=== PATIENT | female | born 1995 | race Caucasian/White ===

== ENCOUNTER 2017-09-19 17:31 | Emergency (ER) | payer OTHER ==
[~2017-09-19] VITALS: Ht 157.5 cm; Wt 54.4 kg
[~2017-09-19 17:31] MED LIST: ALPR1TAB2 PO; DOXY100C2 PO; METR500T PO; ONDA4TAB10 SL
[2017-09-19 18:30] VITALS: BP 118/58
--- NOTE | 2017-09-19 18:41 | PHYS DOC ---
Past Medical History Past Medical History: Hypothyroid Past Surgical History: Other Additional Past Surgical Histo: LEFT ARM ORTHO Alcohol Use: Occasionally Drug Use: None Adult General Chief Complaint Chief Complaint: Congestion HPI HPI Patient is a 22 year old female with history of hypothyroidism and Fuentes's disease who presents today with 2 complaints. Patient is complaining of a sinus infection for 2 weeks. She is also complaining of addiction to Xanax. Patient states she has tried taking azithromycin which she got from a different provider for the sinus infection but symptoms have continued. Patient denies any fever. She states she has been getting Xanax from friends for anxiety. She states the Xanax helped her not think about things. She states she is currently helpless. She states she has tried to withdraw from the Xanax. She states the few days she has not taken it she developed vomiting and diarrhea. Denies any homicidal ideation though she states she sometimes thinks of suicide but does not have a plan. Lexx from the PAT team was informed. Review of Systems Review of Systems Constitutional: Denies fever or chills [] Eyes: Denies change in visual acuity, redness, or eye pain [] HENT: Nasal congestion for 2 weeks Respiratory: Denies cough or shortness of breath [] Cardiovascular: No additional information not addressed in HPI [] GI: Reports vomiting and diarrhea from withdrawals. Denies abdominal pain, : Denies dysuria or hematuria [] Musculoskeletal: Denies back pain or joint pain [] Integument: Denies rash or skin lesions [] Neurologic: Denies headache, focal weakness or sensory changes [] Psych: Reports anxiety All other systems were reviewed and found to be within normal limits, except as documented in this note. Allergies Allergies Allergies Coded Allergies Type Severity Reaction Last Updated Verified codeine Allergy Intermediate SKIN REACTION 04/09/14 No Physical Exam Physical Exam Constitutional: Well developed, well nourished, no acute distress, non-toxic appearance. [] HENT: Normocephalic, atraumatic, bilateral external ears normal, oropharynx moist, no oral exudates, nose normal. [] Mild frontal and maxillary sinus tenderness Eyes: PERRLA, EOMI, conjunctiva normal, no discharge. [] Neck: Normal range of motion, no tenderness, supple, no stridor. [] Cardiovascular:Heart rate regular rhythm, no murmur [] Lungs & Thorax: Bilateral breath sounds clear to auscultation [] Abdomen: Bowel sounds normal, soft, no tenderness, no masses, no pulsatile masses. [] Skin: Warm, dry, no erythema, no rash. [] Back: No tenderness, no CVA tenderness. [] Extremities: No tenderness, no cyanosis, no clubbing, ROM intact, no edema. [] Neurologic: Alert and oriented X 3, normal motor function, normal sensory function, no focal deficits noted. [] Psychologic: Affect normal, judgement normal, patient is tearful. Current Patient Data Vital Signs Vital Signs Date Time Temp Pulse Resp B/P (MAP) Pulse Ox O2 Delivery O2 Flow Rate FiO2 09/19/17 18:30 98.2 72 18 93 Room Air 98.2 EKG EKG [] Radiology/Procedures Radiology/Procedures [] Course & Med Decision Making Course & Med Decision Making Pertinent Labs and Imaging studies reviewed. (See chart for details) Patient is in the ED with a sinus infection, discharged with Augmentin. She was also complaining of withdrawal symptoms from Xanax. She gets Xanax from her friends. She had suicide ideation with no plan. Lexx from the PAT team is in the ED talking to her. Diamond Disclaimer Diamond Disclaimer This electronic medical record was generated, in whole or in part, using a voice recognition dictation system. Departure Departure Impression: Primary Impression: Sinusitis, acute Additional Impression: Drug abuse and dependence Disposition: 01 HOME, SELF-CARE Condition: STABLE Referrals: NO PCP (PCP) Patient Instructions: Drug Abuse and Addiction-[facility], Sinusitis Additional Instructions: You were seen for sinus infection. We put you on antibiotics. Ensure you complete them. Full up with the resources provided by the PAT team. Scripts Amoxicillin/Potassium Clav (AUGMENTIN 875-125 TABLET) 1 Each Tablet 1 TAB PO BID, #20 TAB Prov: DANIELAGORDON REPAIR SPECIALIST 09/19/17 Problem Qualifiers Primary Impression: Sinusitis, acute Sinusitis location: frontal Recurrence: non-recurrent Qualified Codes: J01.10 - Acute frontal sinusitis, unspecified GORDON SUAREZ REPAIR SPECIALIST Sep 19, 2017 18:41
[2017-09-19] MEDS ORDERED: AMOX1TAB61 PO (19:18)
== END 2017-09-19 19:40 | disposition home or self-care (01) ==
LOC: ER 17:31
DX: J01.10 Acute frontal sinusitis, unspecified (principal); J01.00 Acute maxillary sinusitis, unspecified; F13.20 Sedative, hypnotic or anxiolytic dependence, uncomplicated; R11.10 Vomiting, unspecified; T42.4X5A Adverse effect of benzodiazepines, initial encounter; F41.9 Anxiety disorder, unspecified; R45.851 Suicidal ideations; E03.9 Hypothyroidism, unspecified; Z88.5 Allergy status to narcotic agent; Y92.89 Other specified places as the place of occurrence of the external cause
CPT/HCPCS: 99283

== ENCOUNTER 2017-11-19 16:25 | Emergency (ER) | payer OTHER ==
[2017-11-19] MEDS: CETIRIZINE HCL 10 MG TABLET. PO (17:09)
[2017-11-19] MEDS: DEXAMETHASONE SOD PHOS 20 MG/5 ML VIAL. IM (17:09)
[2017-11-19] MEDS: FAMOTIDINE 20 MG TABLET. PO (17:15)
== END 2017-11-19 17:27 | disposition home or self-care (01) ==
LOC: ER 16:25
DX: L50.9 Urticaria, unspecified (principal); E03.9 Hypothyroidism, unspecified; E06.3 Autoimmune thyroiditis; F12.10 Cannabis abuse, uncomplicated; F13.10 Sedative, hypnotic or anxiolytic abuse, uncomplicated; Z88.5 Allergy status to narcotic agent
CPT/HCPCS: 96372; 99283-25; J1100

== ENCOUNTER 2018-01-09 10:09 | Emergency (ER) | payer OTHER ==
[2018-01-09] MEDS ORDERED: CONTRAST GIVEN MC (12:00)
[2018-01-09 12:11] LABS: URINE HCG POC HCG NEGATIVE (Negative)
[2018-01-09] MEDS: fentaNYL PF VIAL 100 MCG/2 ML VIAL IV (12:15)
[2018-01-09] MEDS: ONDANSETRON PF 4 MG/2 ML VIAL. IV (12:15)
[2018-01-09 12:16] LABS: ADD MAN DIFF? NO
[2018-01-09 12:22] LABS: BASO % 0 % (0-3); EOS # 0.3 x10^3/uL (0.0-0.7); EOS % 3 % (0-3); HEMATOCRIT 41.6 % (36.0-47.0); HEMOGLOBIN 14.2 g/dL (12.0-15.5); LYMPH # 2.3 x10^3/uL (1.0-4.8); LYMPH % 23 % (24-48); MEAN CORPUSCULAR HEMOGLOBIN 32 pg (25-35); MEAN CORPUSCULAR HGB CONC 34 g/dL (31-37); MEAN CORPUSCULAR VOLUME 93 fL (79-100); MONO # 0.5 x10^3/uL (0.0-1.1); MONO % 6 % (0-9); NEUT # 6.6 x10^3uL (1.8-7.7); NEUT % 67 % (31-73); PLATELET COUNT 316 x10^3/uL (140-400); RED BLOOD COUNT 4.49 x10^6/uL (3.50-5.40); RED CELL DISTRIBUTION WIDTH 12.5 % (11.5-14.5); WHITE BLOOD COUNT 9.8 x10^3/uL (4.0-11.0)
[2018-01-09 12:32] LABS: ANION GAP 9 (6-14); BLOOD UREA NITROGEN 10 mg/dL (7-20); BUN/CREATININE RATIO 20 (6-20); CALCIUM 9.3 mg/dL (8.5-10.1); CARBON DIOXIDE 29 mmol/L (21-32); CHLORIDE 105 mmol/L (98-107); CREATININE 0.5 mg/dL (0.6-1.0); GFR 152.9; GLUCOSE 86 mg/dL (70-99); POTASSIUM 4.1 mmol/L (3.5-5.1); SODIUM 143 mmol/L (136-145)
[2018-01-09 12:37] LABS: ALBUMIN 4.3 g/dL (3.4-5.0); ALBUMIN/GLOBULIN RATIO 1.4 (1.0-1.7); ALK PHOS 83 U/L (46-116); ALT (SGPT) 18 U/L (14-59); AST (SGOT) 23 U/L (15-37); NEG OBC SER NEG; POS OBC SER POS; PREG TEST PT QUAL NEGATIVE (NEG); TOTAL BILIRUBIN 1.3 mg/dL (0.2-1.0); TOTAL PROTEIN 7.3 g/dL (6.4-8.2)
[2018-01-09] MEDS: IOHEXOL 300 MG/ML 100ML VIAL. IV (12:40)
== END 2018-01-09 14:30 | disposition home or self-care (01) ==
LOC: ER 10:09
DX: R59.9 Enlarged lymph nodes, unspecified (principal); J32.0 Chronic maxillary sinusitis; J32.2 Chronic ethmoidal sinusitis; Z88.5 Allergy status to narcotic agent
CPT/HCPCS: 36415; 70491; 80053; 81025; 84703; 85025; 96374; 96375; 99285-25; J2405; J3010; Q9967

== ENCOUNTER 2018-12-06 17:58 | Emergency (ER) | payer OTHER ==
[~2018-12-06] VITALS: Ht 157.5 cm; Wt 56.7 kg
[~2018-12-06 17:58] MED LIST changes: +AMOX1TAB61 PO; +AMOX250S20 PO; +FAMO20TA5 PO; +HYDR25TA PO; +PRED20TA PO; +TRIA15OI TP
[2018-12-06] MEDS ORDERED: FAMOTIDINE 20 MG/2 ML VIAL IVP ONE (18:15)
[2018-12-06] MEDS ORDERED: ONDANSETRON PF 4 MG/2 ML VIAL. IV ONE (18:15)
[2018-12-06] MEDS ORDERED: IV NORMAL SALINE 1000ML BAG 1,000 ML IV ONE (18:15)
[2018-12-06 18:17] LABS: CLARITY,URINE CLEAR
[2018-12-06 18:22] LABS: BARBITURATES NEG (NEG); BENZODIAZEPINES NEG (NEG); CANNABINOIDS NEG (NEG); COCAINE NEG (NEG); METHADONE NEG (NEG); OPIATES NEG (NEG); PHENCYCLIDINE NEG (NEG)
[2018-12-06 18:23] LABS: AMPHETAMINE/METHAMPHETAMINE NEG (NEG)
[2018-12-06 18:30] LABS: BASO # 0.1 x10^3/uL (0.0-0.2); BASO % 1 % (0-3); EOS # 0.4 x10^3/uL (0.0-0.7); EOS % 4 % (0-3); HEMATOCRIT 43.2 % (36.0-47.0); HEMOGLOBIN 14.9 g/dL (12.0-15.5); LYMPH # 2.7 x10^3/uL (1.0-4.8); LYMPH % 32 % (24-48); MEAN CORPUSCULAR HEMOGLOBIN 32 pg (25-35); MEAN CORPUSCULAR HGB CONC 35 g/dL (31-37); MEAN CORPUSCULAR VOLUME 92 fL (79-100); MONO # 0.7 x10^3/uL (0.0-1.1); MONO % 8 % (0-9); NEUT # 4.6 x10^3uL (1.8-7.7); NEUT % 55 % (31-73); PLATELET COUNT 260 x10^3/uL (140-400); RED BLOOD COUNT 4.72 x10^6/uL (3.50-5.40); RED CELL DISTRIBUTION WIDTH 11.6 % (11.5-14.5); WHITE BLOOD COUNT 8.4 x10^3/uL (4.0-11.0)
[2018-12-06 18:32] LABS: BACTERIA,URINE MODERATE /HPF (0-FEW); COLOR,URINE ORANGE; RBC,URINE 0 /HPF (0-2); SQUAMOUS EPITHELIAL CELL,UR MANY /LPF; WBC,URINE OCC /HPF (0-4)
[2018-12-06 18:38] LABS: CALCIUM 9.5 mg/dL (8.5-10.1); CREATININE 0.6 mg/dL (0.6-1.0); GFR 122.8; POTASSIUM 3.3 mmol/L (3.5-5.1)
--- NOTE | 2018-12-06 18:42 | PHYS DOC ---
Past Medical History Past Medical History: Other Additional Past Medical Histor: ANCELMO'S Past Surgical History: Other Additional Past Surgical Histo: L ARM HARDWARE Alcohol Use: None Drug Use: None Adult General Chief Complaint Chief Complaint: NAUSEA/VOMITING/DIARRHA HPI HPI Patient is a 23 yo female who presents with complaint of nausea, vomiting, diarrhea, abdominal pain, and low back pain. She describes her pain as being constant across her low back and suprapubic. The pain does not favor one side over another. She states she has had the symptoms for 3 days but that they have significantly worsened in the past 2 days. Patient also reports she has vaginal discharge and urinary urgency. She reports she has not taken any medication for the nausea, vomiting, or diarrhea. She has taken ibuprofen for the pain and last took 600mg at 1500. She has also taken azo for the past 2 days to alleviate urinary symptoms. Additionally, patient notes that she is "prone to UTIs" and has taken 1 dose of macrobid for 3 days although her symptoms have become worse. She reports that 2 weeks ago she was on a cruise that went to [facility]. She also reports she had her IUD removed 6 months ago and has lost 20 lbs since. She is on synthyroid for her hypothyroidism but has not had dose adjusted since the weight loss. Finally she notes that for the past 2 days her youngest child (2yo) has also complained of stomach pain. 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 Review of Systems Review of Systems Constitutional: Denies fever. Admits chills Eyes: Denies change in visual acuity, redness, or eye pain [] HENT: Denies nasal congestion or sore throat [] Respiratory: Denies cough or shortness of breath [] Cardiovascular: Denies chest pain or palpitations. GI: Admits abdominal pain, nausea, vomiting and diarrhea. : Admits vaginal discharge. Admits urinary urgency Musculoskeletal: Admits back pain. Denies joint pain Integument: Denies rash or skin lesions [] Neurologic: Denies headache, focal weakness or sensory changes [] Complete systems were reviewed and found to be within normal limits, except as documented in this note. Current Medications Current Medications Current Medications Medications (Trade) Dose Ordered Sig/Amy Start Time Stop Time Status Last Admin Dose Admin Azithromycin (Zithromax) 1,000 mg 1X ONCE 12/06/18 21:30 12/06/18 21:31 DC 12/06/18 21:16 1,000 MG Ceftriaxone Sodium (Rocephin Im) 250 mg 1X ONCE 12/06/18 21:30 12/06/18 21:31 DC 12/06/18 21:18 250 MG Famotidine (Pepcid Vial) 20 mg 1X ONCE 12/06/18 18:15 12/06/18 18:16 DC 12/06/18 18:43 20 MG Ondansetron HCl (Zofran) 4 mg 1X ONCE 12/06/18 18:15 12/06/18 18:16 DC 12/06/18 18:43 4 MG Sodium Chloride 1,000 ml @ 1,000 mls/hr 1X ONCE 12/06/18 18:15 12/06/18 19:14 DC 12/06/18 18:35 1,000 MLS/HR Allergies Allergies Allergies Coded Allergies Type Severity Reaction Last Updated Verified codeine Allergy Intermediate SKIN REACTION 12/06/18 No Latex, Natural Rubber Allergy Mild Swelling 12/06/18 Yes Physical Exam Physical Exam Constitutional: Well developed, well nourished, no acute distress, non-toxic appearance. [] HENT: Normocephalic, atraumatic, oropharynx moist, no oral exudates, nose normal. [] Eyes: PERRLA, EOMI, conjunctiva normal, no discharge. [] Neck: Normal range of motion, no tenderness Cardiovascular:Heart rate regular rhythm, no murmur [] Lungs & Thorax: Bilateral breath sounds clear to auscultation [] Abdomen: Bowel sounds normal, soft, no tenderness to palpation, nonperitoneal abdomen. Pelvic: Skin: Warm, dry, no erythema, no rash. [] Back: No tenderness, no CVA tenderness. [] Extremities: No tenderness, no cyanosis, no clubbing, ROM intact, no edema. [] Neurologic: Alert and oriented X 3, normal motor function, normal sensory function, no focal deficits noted. [] Psychologic: Affect normal, judgement normal, mood normal. [] Current Patient Data Vital Signs Vital Signs Date Time Temp Pulse Resp B/P (MAP) Pulse Ox O2 Delivery O2 Flow Rate FiO2 12/06/18 18:10 98.7 63 18 122/57 (78) 98 Room Air 98.7 Lab Values Laboratory Tests Test 12/06/18 18:02 12/06/18 18:20 Urine Collection Type Unknown Urine Color Tasley Urine Clarity Clear Urine pH 5.0 Urine Specific [employer] 1.020 Urine Protein mg/dL (NEG-TRACE) Urine Glucose (UA) Negative mg/dL (NEG) Urine Ketones (Stick) 15 mg/dL (NEG) Urine Blood Negative (NEG) Urine Nitrite (NEG) Urine Bilirubin (NEG) Urine Urobilinogen Dipstick mg/dL (0.2 mg/dL) Urine Leukocyte Esterase (NEG) Urine RBC 0 /HPF (0-2) Urine WBC Occ /HPF (0-4) Urine Squamous Epithelial Cells Many /LPF Urine Bacteria Moderate /HPF (0-FEW) Urine Mucus Marked /LPF Urine Test Negative (NEG) Urine Opiates Screen Neg (NEG) Urine Methadone Screen Neg (NEG) Urine Barbiturates Neg (NEG) Urine Phencyclidine Screen Neg (NEG) Urine Amphetamine/Methamphetamine Neg (NEG) Urine Benzodiazepines Screen Neg (NEG) Urine Cocaine Screen Neg (NEG) Urine Cannabinoids Screen Neg (NEG) Urine Ethyl Alcohol Neg (NEG) White Blood Count 8.4 x10^3/uL (4.0-11.0) Red Blood Count 4.72 x10^6/uL (3.50-5.40) Hemoglobin 14.9 g/dL (12.0-15.5) Hematocrit 43.2 % (36.0-47.0) Mean Corpuscular Volume 92 fL (79-100) Mean Corpuscular Hemoglobin 32 pg (25-35) Mean Corpuscular Hemoglobin Concent 35 g/dL (31-37) Red Cell Distribution Width 11.6 % (11.5-14.5) Platelet Count 260 x10^3/uL (140-400) Neutrophils (%) (Auto) 55 % (31-73) Lymphocytes (%) (Auto) 32 % (24-48) Monocytes (%) (Auto) 8 % (0-9) Eosinophils (%) (Auto) 4 % (0-3) H Basophils (%) (Auto) 1 % (0-3) Neutrophils # (Auto) 4.6 x10^3uL (1.8-7.7) Lymphocytes # (Auto) 2.7 x10^3/uL (1.0-4.8) Monocytes # (Auto) 0.7 x10^3/uL (0.0-1.1) Eosinophils # (Auto) 0.4 x10^3/uL (0.0-0.7) Basophils # (Auto) 0.1 x10^3/uL (0.0-0.2) Sodium Level 135 mmol/L (136-145) L Potassium Level 3.3 mmol/L (3.5-5.1) L Chloride Level 101 mmol/L (98-107) Carbon Dioxide Level 26 mmol/L (21-32) Anion Gap 8 (6-14) Blood Urea Nitrogen 10 mg/dL (7-20) Creatinine 0.6 mg/dL (0.6-1.0) Estimated GFR (Cockcroft-Gault) 122.8 BUN/Creatinine Ratio 17 (6-20) Glucose Level 98 mg/dL (70-99) Calcium Level 9.5 mg/dL (8.5-10.1) Magnesium Level 1.9 mg/dL (1.8-2.4) Total Bilirubin 1.0 mg/dL (0.2-1.0) Aspartate Amino Transferase (AST) 23 U/L (15-37) Alanine Aminotransferase (ALT) 24 U/L (14-59) Alkaline Phosphatase 79 U/L (46-116) Total Protein 8.0 g/dL (6.4-8.2) Albumin 4.5 g/dL (3.4-5.0) Albumin/Globulin Ratio 1.3 (1.0-1.7) Lipase 173 U/L (73-393) Laboratory Tests 12/06/18 18:20 Laboratory Tests 12/06/18 18:20 Microbiology 12/06/18 Wet Prep - Final, Complete Radiology/Procedures Radiology/Procedures [PROCEDURE: CT ABDOMEN PELVIS WO CONTRAST PQRS Compliance statement: One or more of the following individualized dose reduction techniques were utilized for this examination: 1. Automated exposure control. 2. Adjustment of the mA and/or kV according to patient size. 3. Use of iterative reconstruction technique. Indication:BACK PAIN; EVALUATE FOR RENAL CALCULI TECHNIQUE: CT abdomen and pelvis without IV contrast with multiplanar reformats. COMPARISON: 01/09/2018 FINDINGS: Limited evaluation of solid abdominal and pelvic organs due to lack of IV contrast. Heart is normal in size. No pericardial or pleural effusion. Clear lung bases. Noncontrast appearance of the liver, spleen, gallbladder, pancreas, adrenals within normal limits. No nephrolithiasis or hydronephrosis. No enlarged retroperitoneal or pelvic adenopathy. Trace free pelvic fluid. No bowel obstruction. Mild circumferential wall thickening is seen of the descending colon. Anteverted uterus. Urinary bladder demonstrates no radiopaque stones. No pneumoperitoneum. No suspicious bony lesion. IMPRESSION: Limited evaluation of solid abdominal and pelvic organs due to lack of IV contrast. 1. No nephrolithiasis. 2. Questionable mild circumferential wall thickening of the descending colon. Correlate for colitis symptoms. Electronically signed by: Adonis Jacob DO (12/06/2018 8:00 PM) [facility] ] Course & Med Decision Making Course & Med Decision Making Patient is a 23 yo female who presents with complaint of 3 days of nausea, vomiting, diarrhea, abdominal pain, and vaginal discharge. She reports she originally thought her symptoms were from a UTI as she regularly gets UTIs and has had 3 days of taking one pill of macrobid each day. She also reports recent travel on a cruise to [facility]. Physical exam reveals young woman resting comfortably with unremarkable vitals. Abdomen is soft with bowel sounds present and nonperitoneal. Labs unremarkable. UA difficult d/t patient taking macrobid and azo for 3 days prior to exam. Imaging revealed possible wall thickening in descending colon with recommendation to correlate clinical. On pelvic exam patient had copious purulent discharge at external cervical os with no cervical motion tenderness. Wet mount negative for clue cells. Patient reports she recently had unprotected intercourse and would like to be treated for gonorrhea and chlamydia instead of waiting on results of PCR. Patient treated with rocephin and azithromycin. Also told patient to continue 5 days of macrobid. Patient educated to follow BRAT diet for resolution of diarrheal symptoms. Discussed with patient that [facility] will call her with the results of her gonorrhea and chlamydia tests. Patient also discharged with prescription with zofran for nausea and fluconazole for yeast infection that may occur with abx. Patient stable for discharge with outpatient follow-up with PCP. Discussed findings and plan with patient who acknowledge understanding and agreement. Dragon Disclaimer Dragon Disclaimer This electronic medical record was generated, in whole or in part, using a voice recognition dictation system. Departure Departure Impression: Primary Impression: Nausea vomiting and diarrhea Additional Impressions: Dysuria Vaginal discharge Disposition: 01 HOME, SELF-CARE Condition: STABLE Referrals: NO PCP (PCP) Patient Instructions: Diarrhea, [id number], Diet for Diarrhea, Adult, Dysuria -Brief, Nausea and Vomiting, [id number], Pelvic Pain, Female, [id number] Scripts Ondansetron (ONDANSETRON ODT) 4 Mg Tab.rapdis 1 TAB PO PRN Q6-8HRS for VOMITING, #16 TAB Prov: RADHA DESAI DO 12/06/18 Fluconazole (DIFLUCAN) 150 Mg Tablet 1 TAB PO ONCE, #1 TAB 1 Refill Take one dose upon complition of antibiotics for yeast infection. Prov: RADHA DESAI DO 12/06/18 Problem Qualifiers RADHA DESAI DO Dec 06, 2018 18:42
[2018-12-06 18:46] LABS: ALBUMIN 4.5 g/dL (3.4-5.0); ALBUMIN/GLOBULIN RATIO 1.3 (1.0-1.7); MAGNESIUM 1.9 mg/dL (1.8-2.4)
[2018-12-06 19:15] LABS: U PREG PATIENT NEGATIVE (NEG)
--- NOTE | 2018-12-06 20:05 | RAD ---
PQRS Compliance statement: One or more of the following individualized dose reduction techniques were utilized for this examination: 1. Automated exposure control. 2. Adjustment of the mA and/or kV according to patient size. 3. Use of iterative reconstruction technique. Indication:BACK PAIN; EVALUATE FOR RENAL CALCULI TECHNIQUE: CT abdomen and pelvis without IV contrast with multiplanar reformats. COMPARISON: 01/09/2018 FINDINGS: Limited evaluation of solid abdominal and pelvic organs due to lack of IV contrast. Heart is normal in size. No pericardial or pleural effusion. Clear lung bases. Noncontrast appearance of the liver, spleen, gallbladder, pancreas, adrenals within normal limits. No nephrolithiasis or hydronephrosis. No enlarged retroperitoneal or pelvic adenopathy. Trace free pelvic fluid. No bowel obstruction. Mild circumferential wall thickening is seen of the descending colon. Anteverted uterus. Urinary bladder demonstrates no radiopaque stones. No pneumoperitoneum. No suspicious bony lesion. IMPRESSION: Limited evaluation of solid abdominal and pelvic organs due to lack of IV contrast. 1. No nephrolithiasis. 2. Questionable mild circumferential wall thickening of the descending colon. Correlate for colitis symptoms. Electronically signed by: Adonis Jacob DO (12/06/2018 8:00 PM) [facility]
[2018-12-06 20:30] VITALS: BP 111/56
[2018-12-06] MEDS ORDERED: FLUC150T PO (21:19)
[2018-12-06] MEDS ORDERED: ONDA4TAB12 PO (21:19)
[2018-12-06] MEDS ORDERED: AZITHROMYCIN 250 MG TABLET. PO ONE (21:30)
[2018-12-06] MEDS ORDERED: cefTRIAXone IM 250 MG VIAL IM ONE (21:30)
== END 2018-12-06 21:30 | disposition home or self-care (01) ==
LOC: ER 17:58
DX: R11.2 Nausea with vomiting, unspecified (principal); R19.7 Diarrhea, unspecified; R30.0 Dysuria; N89.8 Other specified noninflammatory disorders of vagina; M54.5 Low back pain; R10.30 Lower abdominal pain, unspecified; R39.15 Urgency of urination; Z88.5 Allergy status to narcotic agent; Z91.040 Latex allergy status
CPT/HCPCS: 36415; 74176; 80053; 80307; 81001; 81025; 83690; 83735; 85025; 87086; 96361; 96372; 96374; 96375; 99284; J0696; J2405; J3490; J7030; Q0111; Q0144

== ENCOUNTER 2019-08-20 10:13 | Emergency (ER) | payer OTHER ==
[~2019-08-20] VITALS: Ht 157.5 cm; Wt 54.4 kg
[~2019-08-20 10:13] MED LIST changes: +FLUC150T PO; +ONDA4TAB12 PO
[2019-08-20 10:31] VITALS: BP 105/59
[2019-08-20] MEDS ORDERED: predniSONE 10 MG TABLET PO ONE (11:00)
[2019-08-20] MEDS ORDERED: ALBUTEROL SULFATE 2.5 MG/3 ML NEBU. NEB ONE (11:00)
[2019-08-20] MEDS ORDERED: METH4TAB2 PO (11:02)
[2019-08-20] MEDS ORDERED: NYST100054 PO (11:02)
--- NOTE | 2019-08-20 11:03 | PHYS DOC ---
Past Medical History Past Medical History: Asthma, Other Additional Past Medical Histor: ANCELMO'S Past Surgical History: Other Additional Past Surgical Histo: L ARM HARDWARE Alcohol Use: None Drug Use: None Adult General Chief Complaint Chief Complaint: SORE THROAT HPI HPI Patient is a 24 year old female who presents with the last week patient has been having a cough, shortness of air, sore throat, ear pain. Patient states 2 days ago she went to [place] they gave her an amoxicillin. Patient states she's been using her inhaler often and it does help some but not enough. Patient states she supposed to have a breathing machine at home but she does not. She rates her pain 6 out of 10. Review of Systems Review of Systems HENT: nasal congestion or sore throat and ear pain [] Respiratory: cough or shortness of breath [] All other systems were reviewed and found to be within normal limits, except as documented in this note. Allergies Allergies Allergies Coded Allergies Type Severity Reaction Last Updated Verified codeine Allergy Intermediate SKIN REACTION 12/06/18 No Latex, Natural Rubber Allergy Mild Swelling 12/06/18 Yes Physical Exam Physical Exam Constitutional: Well developed, well nourished, no acute distress, non-toxic appearance. [] HENT: Normocephalic, atraumatic, bilateral external ears normal, oropharynx moist, no oral exudates, nose normal. Throat reddened with 1+ swelling and no exudates. White patches on tongue.[] Eyes: PERRLA, EOMI, conjunctiva normal, no discharge. [] Neck: Normal range of motion, no tenderness, supple, no stridor. [] Cardiovascular:Heart rate regular rhythm, no murmur [] Lungs & Thorax: Bilateral upper breath sounds wheezes to auscultation [] Skin: Warm, dry, no erythema, no rash. [] Neurologic: Alert and oriented X 3, normal motor function, normal sensory function, no focal deficits noted. [] Psychologic: Affect normal, judgement normal, mood normal. [] Current Patient Data Vital Signs Vital Signs Date Time Temp Pulse Resp B/P (MAP) Pulse Ox O2 Delivery O2 Flow Rate FiO2 08/20/19 10:31 98.1 70 16 105/59 (74) 96 Room Air 98.1 EKG EKG [] Radiology/Procedures Radiology/Procedures [] Course & Med Decision Making Course & Med Decision Making []She has slight wheezes to the upper lobes bilaterally but otherwise clear lungs. Alert and oriented. Speaks in full clear sentences. Throat is reddened with 1+ tonsil swelling and no exudates are seen. Bilateral tympanic are boggy. Ambulatory with a steady gait. Skin pink warm and dry. She also complains that her tongue has been stinging or feels irritated and this was going on before she was put on amoxicillin antibiotic. Patient has white patches on her tongue. I will treat the patient for oral yeast and add a Medrol Dosepak. Patient to continue taking her amoxicillin. She states she does not need a prescription for an inhaler because she has enough. Dragon Disclaimer Dragon Disclaimer This electronic medical record was generated, in whole or in part, using a voice recognition dictation system. Departure Departure Impression: Primary Impression: Asthma Additional Impressions: Throat pain Tongue pain Disposition: HOME, SELF-CARE Condition: STABLE Referrals: NO PCP (PCP) Patient Instructions: Asthma, Adult Additional Instructions: Follow up with primary care provider. Take medications as prescribed. Continue on antibiotic. Scripts Nystatin (NYSTATIN) 100,000 Unit/1 Ml Oral.susp 5 ML PO QID for 7 Days, #200 ML SWISH AND SWALLOW Prov: KIMANI CONNELL APRN 08/20/19 Methylprednisolone (MEDROL) 4 Mg Tab.ds.pk 1 PKG PO UD, #1 PKG Prov: KIMANI CONNELL APRN 08/20/19 Problem Qualifiers Primary Impression: Asthma Asthma severity: mild Asthma persistence: intermittent Asthma complication type: uncomplicated Qualified Codes: J45.20 - Mild intermittent asthma, uncomplicated KIMANI CONNELL AUTOMOTIVE BRAKE ADJUSTER Aug 20, 2019 11:03
== END 2019-08-20 11:50 | disposition home or self-care (01) ==
LOC: ER 10:13
DX: J45.20 Mild intermittent asthma, uncomplicated (principal); K14.6 Glossodynia; H92.09 Otalgia, unspecified ear; Z88.5 Allergy status to narcotic agent; Z91.040 Latex allergy status
CPT/HCPCS: 87070; 87880; 94640; 99283; J7512; J7613; 99284

== ENCOUNTER 2019-09-20 08:38 | Emergency (ER) | payer OTHER ==
[~2019-09-20] VITALS: Ht 157.5 cm; Wt 54.4 kg
[~2019-09-20 08:38] MED LIST changes: +METH4TAB2 PO; +NYST100054 PO
[2019-09-20 08:50] VITALS: BP 134/61
[2019-09-20] MEDS ORDERED: PERM60CR11 TP (09:29)
[2019-09-20] MEDS ORDERED: HYDR25TA PO (09:29)
--- NOTE | 2019-09-20 09:29 | PHYS DOC ---
Past Medical History Past Medical History: Asthma, Hypothyroid, Other Additional Past Medical Histor: ANCELMO'S Past Surgical History: Other Additional Past Surgical Histo: L ARM HARDWARE Alcohol Use: None Drug Use: None Adult General Chief Complaint Chief Complaint: SKIN RASH/ABSCESS [facility] HPI Patient is a 24 year old female who presents with complaining of rash. She complaining of pruritic rash on abdomen and hands for one week after she was exposed to scabies. Patient denies fever and chills, shortness of breath, nausea and vomiting, , history of the same problem. Review of Systems Review of Systems Constitutional: Denies fever or chills [] Eyes: Denies change in visual acuity, redness, or eye pain [] HENT: Denies nasal congestion or sore throat [] Respiratory: Denies cough or shortness of breath [] Cardiovascular: No additional information not addressed in HPI [] GI: Denies abdominal pain, nausea, vomiting, bloody stools or diarrhea [] : Denies dysuria or hematuria [] Musculoskeletal: Denies back pain or joint pain [] Integument: Reports rash Neurologic: Denies headache, focal weakness or sensory changes [] Endocrine: Denies polyuria or polydipsia [] All other systems were reviewed and found to be within normal limits, except as documented in this note. Allergies Allergies Allergies Coded Allergies Type Severity Reaction Last Updated Verified codeine Allergy Intermediate SKIN REACTION 12/06/18 No Latex, Natural Rubber Allergy Mild Swelling 12/06/18 Yes Physical Exam Physical Exam Constitutional: Well developed, well nourished, no distress, non-toxic appearance. [] HENT: Normocephalic, atraumatic. Eyes: PERRLA, EOMI, conjunctiva normal, no discharge. [] Neck: Normal range of motion, no tenderness, supple, no stridor. [] Cardiovascular:Heart rate regular rhythm, no murmur [] Lungs & Thorax: Bilateral breath sounds clear to auscultation [] Skin: Few area of pruritic papular rash on abdominal wall and hands without sign of infection Extremities: No tenderness, no cyanosis, no clubbing, ROM intact, no edema. [] Neurologic: Alert and oriented X 3, no focal deficits noted. [] Psychologic: Affect normal, judgement normal, mood normal. [] Current Patient Data Vital Signs Vital Signs Date Time Temp Pulse Resp B/P (MAP) Pulse Ox O2 Delivery O2 Flow Rate FiO2 09/20/19 08:50 97.8 79 17 134/61 (85) 98 Room Air 97.8 EKG EKG [] Radiology/Procedures Radiology/Procedures [] Course & Med Decision Making Course & Med Decision Making Evaluation of patient in ER showed 24-year-old female patient with a rash after exposure to scabies. Patient had pruritic rash and abdominal wall and hands. Prescription for Elimite was given and patient was advised to wash all of her clothes and sheets and re- takes the medication after one week. I've spoken with the patient and/or caregivers. I've explained the patient's condition, diagnosis and treatment plan based on information available to me at this time. I've answered the patient's and/or caregivers questions and addressed any concerns. The patient and/or caregivers have a good understanding the patient's diagnosis, condition and treatment plan as can be expected at this point. Vital signs have been stabilized. The patient's condition is stable for discharge from the emergency department. The patient will pursue further outpatient evaluation with her primary care provider or other designated consulting physician as outlined in the discharge instructions. Patient and/or caregivers are agreeable to this plan of care and follow-up instructions have been explained in detail. The patient and/or caregivers have received these instructions in written format and expressed understanding of these discharge instructions. The patient and her caregivers are aware that if any significant change in condition or worsening of symptoms should prompt him to immediately return to this of the closest emergency department. If an emergent department is not readily available I would encourage him to call 911. Diamond Disclaimer Diamond Disclaimer This electronic medical record was generated, in whole or in part, using a voice recognition dictation system. Departure Departure Impression: Primary Impression: Scabies Disposition: HOME, SELF-CARE (at [phone]) Condition: STABLE Referrals: NO PCP (PCP) Patient Instructions: Scabies Additional Instructions: Wash all of your sheets and clothes Follow-up with your primary care physician in 3-5 days Return to ER if not getting better Scripts Hydroxyzine Hcl (HYDROXYZINE HCL) 25 Mg Tablet 1 TAB PO TID PRN for itching, #21 TAB Prov: MAMIE TOLBERT MD 09/20/19 Permethrin (ELIMITE) 60 Gm Cream..g. 1 YAMILETH TP ONCE, #60 GM 1 Refill massage into skin from head to soles of feet one time, leave on for 8-14 hours then remove by thorough washing Prov: MAMIE TOLBERT MD 09/20/19 MAMIE TOLBERT MD Sep 20, 2019 09:29
== END 2019-09-20 09:40 | disposition home or self-care (01) ==
LOC: ER 08:38
DX: B86 Scabies (principal); E03.9 Hypothyroidism, unspecified; Z91.040 Latex allergy status; J45.909 Unspecified asthma, uncomplicated; Z88.5 Allergy status to narcotic agent
CPT/HCPCS: 99283

== ENCOUNTER 2020-03-08 15:52 | Inpatient (IN) | payer OTHER ==
[~2020-03-08] VITALS: Ht 157.5 cm; Wt 53.2 kg
[~2020-03-08 15:52] MED LIST changes: +PERM60CR11 TP
[2020-03-08] MEDS ORDERED: ceFAZolin SODIUM IV Push 1 GM VIAL. IVP ONE (16:15)
[2020-03-08] MEDS ORDERED: KETOROLAC 30 MG/ML VIAL. IVP ONE (16:15)
[2020-03-08] MEDS ORDERED: VANCOMYCIN 1GM IVPB FOR OMNI 250 ML IV ONE (16:15)
[2020-03-08] MEDS ORDERED: IV NORMAL SALINE 1000ML BAG 1,000 ML IV ONE ×2 (16:30→18:00)
[2020-03-08 16:34] LABS: BILIRUBIN,URINE SMALL (NEG); CLARITY,URINE CLOUDY; COLOR,URINE AMBER; NITRITE,URINE NEGATIVE (NEG); PH,URINE 6.5 (<5.0-8.0); PROTEIN,URINE 100 mg/dL (NEG-TRACE)
[2020-03-08 16:43] LABS: BACTERIA,URINE MANY /HPF (0-FEW); RBC,URINE 0 /HPF (0-2); SQUAMOUS EPITHELIAL CELL,UR MANY /LPF
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
[2020-03-08 16:59] LABS: BARBITURATES NEG (NEG); BENZODIAZEPINES POS (NEG); CANNABINOIDS NEG (NEG); COCAINE POS (NEG); METHADONE NEG (NEG); OPIATES NEG (NEG); PHENCYCLIDINE NEG (NEG)
[2020-03-08] MEDS ORDERED: fentaNYL PF VIAL 100 MCG/2 ML VIAL IVP ONE (17:00)
[2020-03-08 17:01] LABS: AMPHETAMINE/METHAMPHETAMINE POS (NEG)
[2020-03-08 17:32] LABS: CALCIUM 8.3 mg/dL (8.5-10.1); CREATININE 0.7 mg/dL (0.6-1.0); POTASSIUM 3.4 mmol/L (3.5-5.1)
[2020-03-08 17:38] LABS: ALBUMIN 3.3 g/dL (3.4-5.0); ALBUMIN/GLOBULIN RATIO 0.9 (1.0-1.7); TOTAL BILIRUBIN 1.2 mg/dL (0.2-1.0); TOTAL PROTEIN 6.8 g/dL (6.4-8.2)
[2020-03-08 17:41] LABS: BASO % 0 % (0-3); EOS # 0.1 x10^3/uL (0.0-0.7); EOS % 1 % (0-3); HEMATOCRIT 36.1 % (36.0-47.0); HEMOGLOBIN 12.7 g/dL (12.0-15.5); LYMPH # 1.1 x10^3/uL (1.0-4.8); LYMPH % 7 % (24-48); MEAN CORPUSCULAR HEMOGLOBIN 31 pg (25-35); MEAN CORPUSCULAR HGB CONC 35 g/dL (31-37); MEAN CORPUSCULAR VOLUME 89 fL (79-100); MONO # 0.7 x10^3/uL (0.0-1.1); MONO % 5 % (0-9); NEUT # 13.3 x10^3/uL (1.8-7.7); NEUT % 87 % (31-73); PLATELET COUNT 221 x10^3/uL (140-400); RED BLOOD COUNT 4.07 x10^6/uL (3.50-5.40); RED CELL DISTRIBUTION WIDTH 12.7 % (11.5-14.5); WHITE BLOOD COUNT 15.3 x10^3/uL (4.0-11.0)
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
[2020-03-08 17:51] LABS: PROTHROMBIN TIME PATIENT 14.8 SEC (11.7-14.0)
[2020-03-08 17:53] LABS: D-DIMER 0.64 ug/mlFEU (0.00-0.50)
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
[2020-03-08 17:56] LABS: INFLUENZA A PATIENT NEGATIVE (NEGATIVE); INFLUENZA B PATIENT NEGATIVE (NEGATIVE)
[2020-03-08] MEDS ORDERED: ONDANSETRON PF 4 MG/2 ML VIAL. IV PRN (18:00)
[2020-03-08] MEDS ORDERED: ACETAMINOPHEN 325 MG TABLET. PO PRN (18:00)
[2020-03-08] MEDS ORDERED: ONDANSETRON PF 4 MG/2 ML VIAL. IVP ONE (18:00)
[2020-03-08] MEDS ORDERED: KETOROLAC 30 MG/ML VIAL. IVP PRN (18:00)
[2020-03-08 18:01] LABS: % BANDS 2 % (0-9); % LYMPHS 10 % (24-48); % MONOS 2 % (0-10); % SEGS 86 % (35-66); PLT ESTIMATE ADEQUATE (ADEQUATE)
[2020-03-08 20:00] VITALS: BP 107/45
[2020-03-08] MEDS: ENOXAPARIN 40 MG/0.4 ML SYRINGE. SQ SCH (21:00)
[2020-03-08 22:47] VITALS: BP 104/50
[2020-03-09 03:45] VITALS: BP 111/48
[2020-03-09 04:46] LABS: BASO # 0.1 x10^3/uL (0.0-0.2); BASO % 1 % (0-3); EOS # 0.1 x10^3/uL (0.0-0.7); EOS % 1 % (0-3); HEMATOCRIT 32.2 % (36.0-47.0); HEMOGLOBIN 11.2 g/dL (12.0-15.5); LYMPH # 1.3 x10^3/uL (1.0-4.8); LYMPH % 10 % (24-48); MEAN CORPUSCULAR HEMOGLOBIN 31 pg (25-35); MEAN CORPUSCULAR HGB CONC 35 g/dL (31-37); MEAN CORPUSCULAR VOLUME 89 fL (79-100); MONO # 0.8 x10^3/uL (0.0-1.1); MONO % 6 % (0-9); NEUT # 10.3 x10^3/uL (1.8-7.7); NEUT % 82 % (31-73); PLATELET COUNT 209 x10^3/uL (140-400); RED BLOOD COUNT 3.61 x10^6/uL (3.50-5.40); RED CELL DISTRIBUTION WIDTH 12.7 % (11.5-14.5); WHITE BLOOD COUNT 12.5 x10^3/uL (4.0-11.0)
[2020-03-09 04:52] LABS: CALCIUM 7.7 mg/dL (8.5-10.1); CREATININE 0.6 mg/dL (0.6-1.0); GFR 121.8
[2020-03-09 05:03] LABS: ALBUMIN 2.5 g/dL (3.4-5.0); ALBUMIN/GLOBULIN RATIO 0.8 (1.0-1.7); TOTAL BILIRUBIN 0.7 mg/dL (0.2-1.0); TOTAL PROTEIN 5.5 g/dL (6.4-8.2)
[2020-03-09 07:00] VITALS: BP 102/46
[2020-03-09] MEDS ORDERED: oxyCODONE/APAP 5/325 1 TAB TABLET PO PRN (08:45)
[2020-03-09] MEDS ORDERED: POTASSIUM CHLORIDE 20 MEQ TABLET.ER. PO ONE (08:45)
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
[2020-03-09] MEDS ORDERED: cefTRIAXone IV Push 1 GM VIAL. IVP SCH (10:00)
[2020-03-09] MEDS: ASCORBIC ACID 500 MG TABLET PO SCH (10:11)
[2020-03-09] MEDS: VITAMIN B12,B9,B6 COMPLEX 1 TABLET. PO SCH (10:11)
[2020-03-09] MEDS: ZINC SULFATE 220 MG CAPSULE. PO SCH (10:11)
[2020-03-09 11:00] VITALS: BP 109/52
[2020-03-09] MEDS ORDERED: IV NORMAL SALINE 1000ML BAG 1,000 ML IV ONE (11:30)
--- NOTE | 2020-03-09 12:07 | NUR ---
SS following for discharge planning. SS reviewed pt chart and discussed with pt RN. Pt is from home and is currently on room air. Pt is positive for Meth, Cocaine, and Benzo's. Pt on IV antibiotics for UTI and Cellulitis. Pt COVID19 pending. PAT team consulted. SS will continue to follow for discharge planning.
[2020-03-09 15:00] VITALS: BP 115/53
--- NOTE | 2020-03-09 16:19 | NUR ---
SS following up with discharge planning. Lexx from the PAT team met with pt. Pt's spouse has custody of her children. Pt sees private therapist at and is prescribed medications. Pt reported to Lexx that she took Adderall at a friends house. Pt has no SI or HI. Pt provided with resources to [facility]. SS will continue to follow for discharge planning.
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
[2020-03-09 19:56] VITALS: BP 119/58
[2020-03-09] MEDS: ENOXAPARIN 40 MG/0.4 ML SYRINGE. SQ SCH (21:00)
[2020-03-09 23:33] VITALS: BP 109/52
[2020-03-10 03:55] VITALS: BP 104/60
[2020-03-10 07:00] VITALS: BP 102/48
--- NOTE | 2020-03-10 07:40 | NUR ---
IP: Pt is COVID + requiring airborne/contact precautions using a face shield.
[2020-03-10] MEDS ORDERED: AMOXICILLIN/K CLAV 875/125MG TABLET. PO SCH (09:00)
[2020-03-10] MEDS: VITAMIN B12,B9,B6 COMPLEX 1 TABLET. PO SCH (09:15)
[2020-03-10] MEDS: ZINC SULFATE 220 MG CAPSULE. PO SCH (09:15)
[2020-03-10] MEDS: ASCORBIC ACID 500 MG TABLET PO SCH (09:15)
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
--- NOTE | 2020-03-10 13:55 | NUR ---
Discharge Note: [facility] Discharge instructions and discharge home medications reviewed with Patient and a copy given. All questions have been answered and understanding verbalized. The following instructions and handouts were given: patient visit report, medication information, education, COVID-19 discharge education. Discontinued lines and drains: peripheral IV, tip intact. Patient discharged to home with self care via private vehicle. Patient left unit awake, in stable condition, with all personal belongings. Pt left hosptial with surgical face mask in place and educated on need to wear mask.
== END 2020-03-10 13:10 | disposition home or self-care (01) | DRG 871 ==
LOC: ER 15:52 → 4 NORTH 18:08 → 6 SOUTH 19:35
PROVIDERS: ADMIT Internal Medicine; ATTEND Internal Medicine
DX: A41.89 Other specified sepsis (principal); U07.1 COVID-19; G93.40 Encephalopathy, unspecified; N39.0 Urinary tract infection, site not specified; L03.115 Cellulitis of right lower limb; J45.909 Unspecified asthma, uncomplicated; M54.2 Cervicalgia; R51 Headache; F14.10 Cocaine abuse, uncomplicated; F15.10 Other stimulant abuse, uncomplicated; F12.10 Cannabis abuse, uncomplicated; E06.3 Autoimmune thyroiditis; D72.819 Decreased white blood cell count, unspecified; Z79.899 Other long term (current) drug therapy; Z88.5 Allergy status to narcotic agent; Z91.040 Latex allergy status
CPT/HCPCS: 36415; 70450; 71045; 72125; 73590; 73630; 80053; 80307; 81001; 81025; 83605; 85007; 85025; 85379; 85384; 85610; 85730; 87040; 87070; 87086; 87635; 87804; 87880; 96361; 96365; 96375; 99285; G0480; J0690; J0696; J1885; J3010; J3370; J7030; G0378

== ENCOUNTER 2022-03-14 13:38 | Emergency (ER) | payer OTHER ==
[~2022-03-14] VITALS: Ht 157.5 cm; Wt 54.5 kg
[~2022-03-14 13:38] MED LIST changes: -DOXY100C2 PO; +DOXY100C3 PO
[2022-03-14 14:08] VITALS: BP 128/73
[2022-03-14 15:20] LABS: BASO % 1 % (0-3); EOS # 0.3 x10^3/uL (0.0-0.7); EOS % 4 % (0-3); HEMATOCRIT 37.5 % (36.0-47.0); HEMOGLOBIN 12.8 g/dL (12.0-15.5); LYMPH # 1.4 x10^3/uL (1.0-4.8); LYMPH % 24 % (24-48); MEAN CORPUSCULAR HEMOGLOBIN 31 pg (25-35); MEAN CORPUSCULAR HGB CONC 34 g/dL (31-37); MEAN CORPUSCULAR VOLUME 92 fL (79-100); MONO # 0.5 x10^3/uL (0.0-1.1); MONO % 9 % (0-9); NEUT # 3.8 x10^3/uL (1.8-7.7); NEUT % 63 % (31-73); PLATELET COUNT 291 x10^3/uL (140-400); RED BLOOD COUNT 4.09 x10^6/uL (3.50-5.40); RED CELL DISTRIBUTION WIDTH 12.4 % (11.5-14.5)
[2022-03-14 15:39] LABS: CREATININE 0.6 mg/dL (0.6-1.0); GFR 119.9; POTASSIUM 4.2 mmol/L (3.5-5.1)
[2022-03-14 15:41] LABS: ALBUMIN 3.9 g/dL (3.4-5.0); ALBUMIN/GLOBULIN RATIO 1.1 (1.0-1.7); TOTAL BILIRUBIN 0.6 mg/dL (0.2-1.0); TOTAL PROTEIN 7.3 g/dL (6.4-8.2)
[2022-03-14 15:42] LABS: BARBITURATES NEG (NEG); BENZODIAZEPINES POS (NEG); CANNABINOIDS NEG (NEG); COCAINE NEG (NEG); METHADONE NEG (NEG); OPIATES POS (NEG); PHENCYCLIDINE NEG (NEG)
[2022-03-14 15:44] LABS: AMPHETAMINE/METHAMPHETAMINE NEG (NEG)
[2022-03-14 16:10] LABS: BACTERIA,URINE FEW /HPF (0-FEW); RBC,URINE 0 /HPF (0-2); WBC,URINE 0 /HPF (0-4)
--- NOTE | 2022-03-14 18:03 | PHYS DOC ---
Past Medical History Past Medical History: Anxiety, Asthma, Hypothyroid, Other Additional Past Medical Histor: ANCELMO'S, LYME'S Past Surgical History: Other Additional Past Surgical Histo: L ARM HARDWARE Smoking Status: Never Smoker Alcohol Use: None Drug Use: None General Adult EDM: Chief Complaint: OTHER COMPLAINTS HPI: HPI: Patient is a 26 year old female with history of anxiety presenting to the ED today complaining of bilateral upper extremity swelling with tremors, symptoms have been going on for 2 days. Patient denies any injuries. Denies any chest pain, denies any shortness of breath, denies any history of CHF, kidney failure. She states alprazolam relieves some for her tremors Review of Systems: Review of Systems: Constitutional: Denies fever or chills. [] Eyes: Denies change in visual acuity. [] HENT: Denies nasal congestion or sore throat. [] Respiratory: Denies cough or shortness of breath. [] Cardiovascular: Denies chest pain or edema. [] GI: Denies abdominal pain, nausea, vomiting, bloody stools or diarrhea. [] : Denies dysuria. [] Musculoskeletal: Denies back pain or joint pain. [] Integument: Reports bilateral upper extremity swelling, tremors to bilateral upper extremities Neurologic: Denies headache, focal weakness or sensory changes. [] ] Psychiatric: Denies depression or anxiety. [] Heart Score: C/O Chest Pain: N/A Risk Factors: Risk Factors: DM, Current or recent (<one month) smoker, HTN, HLP, family history of CAD, obesity. Risk Scores: Score 0 - 3: 2.5% MACE over next 6 weeks - Discharge Home Score 4 - 6: 20.3% MACE over next 6 weeks - Admit for Clinical Observation Score 7 - 10: 72.7% MACE over next 6 weeks - Early Invasive Strategies Allergies: Allergies: Allergies Coded Allergies Type Severity Reaction Last Updated Verified codeine Allergy Intermediate SKIN REACTION 03/10/20 Yes Latex, Natural Rubber Allergy Mild Swelling 12/06/18 Yes Physical Exam: PE: Constitutional: Well developed, well nourished, no acute distress, non-toxic appearance. [] HENT: Normocephalic, atraumatic, bilateral external ears normal, oropharynx moist, no oral exudates, nose normal. [] Eyes: PERRLA, EOMI, conjunctiva normal, no discharge. [] Neck: Normal range of motion, no tenderness, supple, no stridor. [] Cardiovascular:Heart rate regular rhythm, no murmur [] Lungs & Thorax: Bilateral breath sounds clear to auscultation [] Abdomen: Bowel sounds normal, soft, no tenderness, no masses, no pulsatile masses. [] Skin: Warm, dry, no erythema, no rash. [] Back: No tenderness, no CVA tenderness. [] Extremities: No tenderness, no cyanosis, no clubbing, ROM intact, trace edema noted to the right hand specifically fingers patient has tremors to bilateral upper extremities suspicious of anxiety Neurologic: Alert and oriented X 3, normal motor function, normal sensory function, no focal deficits noted. [] Psychologic: Affect normal, judgement normal, mood normal. [] Current Patient Data: Labs: Laboratory Tests Test 03/14/22 14:54 03/14/22 15:20 03/14/22 15:23 White Blood Count 6.0 x10^3/uL (4.0-11.0) Red Blood Count 4.09 x10^6/uL (3.50-5.40) Hemoglobin 12.8 g/dL (12.0-15.5) Hematocrit 37.5 % (36.0-47.0) Mean Corpuscular Volume 92 fL (79-100) Mean Corpuscular Hemoglobin 31 pg (25-35) Mean Corpuscular Hemoglobin Concent 34 g/dL (31-37) Red Cell Distribution Width 12.4 % (11.5-14.5) Platelet Count 291 x10^3/uL (140-400) Neutrophils (%) (Auto) 63 % (31-73) Lymphocytes (%) (Auto) 24 % (24-48) Monocytes (%) (Auto) 9 % (0-9) Eosinophils (%) (Auto) 4 % (0-3) H Basophils (%) (Auto) 1 % (0-3) Neutrophils # (Auto) 3.8 x10^3/uL (1.8-7.7) Lymphocytes # (Auto) 1.4 x10^3/uL (1.0-4.8) Monocytes # (Auto) 0.5 x10^3/uL (0.0-1.1) Eosinophils # (Auto) 0.3 x10^3/uL (0.0-0.7) Basophils # (Auto) 0.0 x10^3/uL (0.0-0.2) Sodium Level 138 mmol/L (136-145) Potassium Level 4.2 mmol/L (3.5-5.1) Chloride Level 108 mmol/L (98-107) H Carbon Dioxide Level 24 mmol/L (21-32) Anion Gap 6 (6-14) Blood Urea Nitrogen 9 mg/dL (7-20) Creatinine 0.6 mg/dL (0.6-1.0) Estimated GFR (Cockcroft-Gault) 119.9 BUN/Creatinine Ratio 15 (6-20) Glucose Level 99 mg/dL (70-99) Calcium Level 9.0 mg/dL (8.5-10.1) Total Bilirubin 0.6 mg/dL (0.2-1.0) Aspartate Amino Transferase (AST) 26 U/L (15-37) Alanine Aminotransferase (ALT) 22 U/L (14-59) Alkaline Phosphatase 81 U/L (46-116) AG-Uzo-L-Type Natriuretic Peptide 118 pg/mL (0-124) Total Protein 7.3 g/dL (6.4-8.2) Albumin 3.9 g/dL (3.4-5.0) Albumin/Globulin Ratio 1.1 (1.0-1.7) Thyroid Stimulating Hormone (TSH) 0.491 uIU/mL (0.358-3.74) Ethyl Alcohol Level < 10 mg/dL (0-10) Urine Collection Type Unknown Urine Color (Auto) Light yellow Urine Turbidity Clear Urine pH (Auto) 7.0 (<5.0-8.0) Urine Specific [place] 1.014 (1.000-1.030) Urine Protein (Auto) Negative mg/dL (Negative) Urine Glucose (Auto)(UA) Negative mg/dL (Negative) Urine Ketones (Auto) Negative mg/dL (Negative) Urine Blood (Auto) Negative (Negative) Urine Nitrite Negative (Negative) Urine Bilirubin (Auto) Negative (Negative) Urine Urobilinogen (Auto) Normal mg/dL (Normal) Urine Leukocyte Esterase (Auto) Negative (Negative) Urine RBC 0 /HPF (0-2) Urine WBC 0 /HPF (0-4) Urine Squamous Epithelial Cells Mod /LPF Urine Bacteria Few /HPF (0-FEW) Urine Mucus Mod /LPF Urine Opiates Screen Pos (NEG) Urine Methadone Screen Neg (NEG) Urine Barbiturates Neg (NEG) Urine Phencyclidine Screen Neg (NEG) Urine Amphetamine/Methamphetamine Neg (NEG) Urine Benzodiazepines Screen Pos (NEG) Urine Cocaine Screen Neg (NEG) Urine Cannabinoids Screen Neg (NEG) Urine Ethyl Alcohol Neg (NEG) POC Urine HCG, Qualitative Hcg negative (Negative) Laboratory Tests 03/14/22 14:54 Laboratory Tests 03/14/22 14:54 Vital Signs: Vital Signs Date Time Temp Pulse Resp B/P (MAP) Pulse Ox O2 Delivery O2 Flow Rate FiO2 03/14/22 14:08 97.7 89 18 128/73 (91) 98 Room Air 97.7 EKG: EKG: [] Radiology/Procedures: Radiology/Procedures: [] Course & Med Decision Making: Course & Med Decision Making Pertinent Labs and Imaging studies reviewed. (See chart for details) This Is a 26-year-old female patient presented to the ED today complaining of bilateral upper extremity tremors, swelling to bilateral upper extremities, symptoms for 2 days. History of anxiety. CBC, CMP, BNP with no acute findings. UDS positive for benzodiazepines, and opiates. Patient was discharged to home. Instructed to take her anxiety medicines for the tremors/shaking. Encouraged to elevate bilateral upper extremities. Follow-up with PCP in 1 week Diamond Disclaimer: Diamond Disclaimer: This electronic medical record was generated, in whole or in part, using a voice recognition dictation system. Departure Departure Impression: Primary Impression: Tremor of both hands Additional Impression: Edema Qualified Codes: R60.9 - Edema, unspecified Disposition: HOME / SELF CARE / HOMELESS Condition: STABLE Referrals: NO PCP (PCP) follow up with your doctor in one week Patient Instructions: Edema, Tremor Additional Instructions: You were evaluated in the emergency room, your work-up is negative for any acute findings. Please follow-up with your own doctor in the next 1 week. Try to elevate the upper extremities. Ensure you are taking your antianxiety medicines when you have these tremors/anxiety episodes. GORDON SUAREZ APRN March 14, 2022 18:03
== END 2022-03-14 18:36 | disposition home or self-care (01) ==
LOC: ER 13:38
DX: R25.1 Tremor, unspecified (principal); R60.0 Localized edema; F41.9 Anxiety disorder, unspecified; J45.909 Unspecified asthma, uncomplicated; E03.9 Hypothyroidism, unspecified; Z88.5 Allergy status to narcotic agent; Z91.040 Latex allergy status
CPT/HCPCS: 36415; 80053; 80307; 81001; 81025; 83880; 84443; 85025; 99283; G0480